=== PATIENT | female | born 1995 | race Caucasian/White ===

== ENCOUNTER 2019-10-10 10:52 | Outpatient (REF) | payer BC, SELFPAY ==
[2019-10-10 14:46] LABS: Anion Gap 8.8 mmol/L (3-11); BUN 10 mg/dL (7-18); CO2 26.2 mmol/L (21.0-32.0); CREATININE 0.95 mg/dL (0.55-1.02); Calcium 9.3 mg/dL (8.5-10.1); Calculated LDL 118 mg/dL (<100); Chloride 103 mmol/L (98-107); Cholesterol 175 mg/dL (<200); Glucose 98 mg/dL (74-106); HDL Cholesterol 45 mg/dL (40-60); Potassium 4.1 mmol/L (3.5-5.1); Sodium 138 mmol/L (136-145); Triglyceride 62 mg/dL (<150)
== END 2019-10-10 11:12 ==
LOC: NCHCN 10:52
PROVIDERS: PCP Nurse Practitioner Family; Visit Provider Physician Assistant
DX: Z00.00 Encounter for general adult medical examination without abnormal findings (principal); Z13.220 Encounter for screening for lipoid disorders; Z13.228 Encounter for screening for other metabolic disorders
CPT/HCPCS: 80048; 80061

== ENCOUNTER 2019-10-23 05:26 | Outpatient (CLI) | payer BC, SELFPAY ==
--- NOTE | 2019-10-23 15:45 | NS.NUTBLAN_ITS ---
Agueda is referred for medical nutrition therapy for weight management. PMH: Nicol Danlos Syndrome and Garcia Syndrome. These conditions makes make exercise difficult due to hypertension and hyperflexibility of knee joints however she is able to use various exercise equipment at the gym. Agueda reports that she has gained > 100 lbs in last 6 years. She contributes weight gain to control and uncontrolled hunger. She also reports liquid poop 4-5 times daily. Weight today: 271 lbs, 64 inches, BMI 45. She does not drink or smoke but reports that she uses food to self sooth. Meds include 25 mg adderall XR, Effexor 37.5 mg. She has depression/anxiety. Labs include lipids wnl (10/10/19). Family history includes sister with eating disorder and mother that counted calories daily. 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 Food record indicates sporatic meals, reliance on convenience foods and frequent late night meals. Intervention: Educated Agueda on how to follow a lower carb diet. 6717-4948 kcal, 80-100 g protein with reliance on complex carbs, non starchy vegetables and lean protein. Written Education Material Provided. . Encouraged Agueda to exercise 45 min- 6 days per week and burn approx. 500 kcal per exercise season. Showed Agueda how to use phone patito called [employer] to log and track nutrient intake, exercise expenditure. ALso recommended follow up with PCP re: watery stools, may need colonoscopy and various conditions need to be r/o by GI. Suggested Agueda try citrucel 2 scoops daily to help absorb some stool fluid by soluable fiber. Excessive weight gain most likely due to excessive caloric intake due to anxiety/depression. In order to reduce reliance on food for soothing, will need to find alternate coping strategy. Goal: 5 lbs loss per month. Goal weight <200 lbs Plan. 1. Next visit 11/13/19 at 1400, 2. Agueda will email food record to typewriter mechanic weekly, 3. Agueda will follow meal plan and exercise 6 times weekly, Agueda will follow up with PCP re: watery stools.
== END 2019-10-23 05:46 ==
PROVIDERS: PCP Nurse Practitioner Family; Visit Provider Physician Assistant
DX: R63.5 Abnormal weight gain (principal); Q79.69 Other Ehlers-Danlos syndromes; I10 Essential (primary) hypertension; F41.8 Other specified anxiety disorders; Z71.3 Dietary counseling and surveillance
CPT/HCPCS: 97802

== ENCOUNTER 2022-10-31 14:02 | Outpatient (REF) | payer BC, SELFPAY ==
--- NOTE | 2022-10-31 13:45 | PAPFT_PTH ---
PATIENT: Agueda Watters LOC: [facility] U#:[id number] AGE/SX: 27/F ROOM: RE10/31/[address]: Debbie Arizmendi NP : 1995 BED: DIS: 10/31/2022 SPEC #: [id number] RECD: 10/31/22 17:45 STATUS: ZULEMA REJuan J #: [id number] VILLA: 10/31/22 13:[address]: Debbie Arizmendi NP DEPT: [facility] Cytology RECD BY: Marva Marques ENTERED: 10/31/22 17:45 SP TYPE: PAPFT OTHR DR: Kirstin Helton Tissues: 1 - CX/ENDOCX FOR PAP SMEARS Procedures: PAP THIN PREP/UVM Screening Comments: [id number]
== END 2022-10-31 14:03 | disposition home or self-care (01) ==
LOC: LBN 14:02
PROVIDERS: PCP Registered Nurse; Visit Provider Nurse Practitioner Women's Health
DX: R87.610 Atypical squamous cells of undetermined significance on cytologic smear of cervix (ASC-US) (principal)
CPT/HCPCS: 88142

== ENCOUNTER 2024-01-09 03:49 | Outpatient (CLI) | payer BC, SELFPAY ==
--- OUTSIDE RECORDS SUMMARY | 2024-01-09 03:57 | XMS_ITS | Referral Summary ---
Author Organization Health system Address [address] [place] [address] Care Team Providers Care Typing Bookkeeper Name Role Phone Marina Villalobos AUDIO VISUAL ENGINEER Primary Care Provider [phone] Social History Tobacco Use Types Packs/Day Years Used Date Smoking Tobacco: Never Assessed Sex and Gender Information Value Date Recorded Sex Assigned at Not on file Gender Identity Not on file Sexual Orientation Not on file Plan of Treatment Not on file Care Teams Typing Bookkeeper Relationship Specialty Start Date End Date Marina Villalobos, AUDIO VISUAL ENGINEER [address] [place] [address] PCP - General 07/17/18
--- OUTSIDE RECORDS SUMMARY | 2024-01-09 03:57 | XMS_ITS | Clinical Summary ---
Author Organization [facility] Address [address] [place] [address] Care Team Providers Care International Banker Name Role Phone Marina Villalobos NP Primary Care Provider [phone] Social History Tobacco Use Types Packs/Day Years Used Date Smoking Tobacco: Never Assessed Sex and Gender Information Value Date Recorded Sex Assigned at Not on file Gender Identity Not on file Sexual Orientation Not on file Plan of Treatment Health Maintenance Due Date Last Done Comments Hepatitis C Screen 1995 Hepatitis B Vaccine (1 of 3 - 19+ 3-dose series) 09/14 COVID-19 Vaccine (2022- season) 2023 Care Teams International Banker Relationship Specialty Start Date End Date Marina Villalobos CAP LINING MACHINE OPERATOR [address] [place] [address] PCP - General 07/17/18
--- OUTSIDE RECORDS SUMMARY | 2024-01-09 03:57 | XMS_ITS | Encounter Summary ---
Author Organization [facility] Address [address] [place] [address] Care Team Providers Care Director Aeronaut[employer] Commission Name Role Phone Marina Villalobos NP Primary Care Provider Encounter Details Date Type Department Care Team (Late st Contact Info) Description 11/01/2022 Lab Requisition [facility] Pathology & Laboratory Medicine - [facility] [address] [place] [address] Debbie Arizmendi, CARDIOLOGY COORDINATOR [address] [address] Encounter for other general examination Social History Tobacco Use Types Packs/Day Years Used Date Smoking Tobacco: Never Assessed Sex and Gender Information Value Date Recorded Sex Assigned at Not on file Gender Identity Not on file Sexual Orientation Not on file documented as of this encounter Plan of Treatment Not on file documented as of this encounter Procedures Procedure Name Priority Date/Time Associated Diagnosis Comments PAP TEST Today 10/31/2022 13:45 EDT Encounter for other general examination documented in this encounter Results * PAP TEST (10/31/2022 13:45 EDT) Specimens A. Cervix and/or Endocervix , ThinPrep Imaging System with Manual Evaluation 11/16/2022 15:21 EDT [facility] Specimen Adequacy Satisfactory for Evaluation - transformation zone component present 11/16/2022 15:21 EDT [facility] General Categorization Negative for intraepithelial lesion or malignancy 11/16/2022 15:21 EDT [facility] Descriptive Diagnosis Shift in vasiliy present suggestive of bacterial vaginosis. 11/16/2022 15:21 EDT [facility] Attestation . 11/16/2022 15:21 EDT [facility] at 1521 Clinical History See below 11/17/19 15:21 EDT [facility] Performing Lab [facility] 11/16/2022 15:21 EDT [facility] Scanned Images 11/16/2022 15:21 EDT [facility] Papanicolaou smear specimen (specimen) CERVIX UTERI STRUCTURE / Unknown 10/31/2022 13:45 EDT 11/01/2022 11:45 EDT Debbie Arizmendi APRN PATHOLOGY ORDERAB LES [facility] [address] [place] [address] documented in this encounter Visit Diagnoses Diagnosis Encounter for other general examination documented in this encounter Care Teams Director Aeronautics Commission Relationship Specialty Start Date End Date Marina Villalobos NP [address] [place] [address] PCP - General 07/17/18 documented as of this encounter
--- OUTSIDE RECORDS SUMMARY | 2024-01-09 03:57 | XMS_ITS | Encounter Summary ---
Author Organization [facility] Address [address] [place] [address] Care Team Providers Care Network Field Engineer Name Role Phone Marina Villalobos GRAFFITI CLEANER Primary Care Provider [phone]- [phone] Reason for Visit * Reason Onset Date Comments Appointment Related 10/02/2018 FCP Encounter Details Date Type Department Care Team (Late st Contact Info) Description 10/02/2018 Telephone [facility] Hematology & Oncology - [facility] [address] [place], [place] [address] Fcp, Provider, Appointment Related (FCP) Social History Tobacco Use Types Packs/Day Years Used Date Smoking Tobacco: Never Assessed Sex and Gender Information Value Date Recorded Sex Assigned at Not on file Gender Identity Not on file Sexual Orientation Not on file documented as of this encounter Miscellaneous Notes * Telephone Encounter - Myra Hickman - 10/02/2018 1318 EDT Called pt and LMOM to f/up on referral. Left direct line for pt to call back. 3rd attempt. documented in this encounter Plan of Treatment Not on file documented as of this encounter Visit Diagnoses Not on filedocumented in this encounter Care Teams Network Field Engineer Relationship Specialty Start Date End Date Marina Villalobos NP [address] [place], [place] [address] PCP - General 07/17/18 documented as of this encounter
--- OUTSIDE RECORDS SUMMARY | 2024-01-09 03:57 | XMS_ITS | Encounter Summary ---
Author Organization [facility] Address [address] [place] [address] Care Team Providers Care Trailhead Maintenance Worker Name Role Phone Marina Villalobos NP Primary Care Provider [phone]- [phone] Reason for Visit * Reason Onset Date Comments Appointment Related 08/28/2018 FCP Encounter Details Date Type Department Care Team (Late st Contact Info) Description 08/28/2018 Telephone [facility] Hematology & Oncology - [facility] [address] [place], [place] [address] Fcp, Provider, Appointment Related (FCP) Social History Tobacco Use Types Packs/Day Years Used Date Smoking Tobacco: Never Assessed Sex and Gender Information Value Date Recorded Sex Assigned at Not on file Gender Identity Not on file Sexual Orientation Not on file documented as of this encounter Miscellaneous Notes * Telephone Encounter - Myra Hickman - 08/28/2018 1200 EDT Myra Hickman 07/23/2018 12:04 Called and LMOM on 07/11/18 for pt, but could not find MRN until recently. Left direct line for pt to call back. Myra Hickman 08/28/2018 11:59 Called pt and LMOM to f/up on referral. Left direct line for pt to call back. documented in this encounter Plan of Treatment Not on file documented as of this encounter Visit Diagnoses Not on filedocumented in this encounter Care Teams Trailhead Maintenance Worker Relationship Specialty Start Date End Date Marina Villalobos AUDIO VIDEO MECHANIC [address] [place] [address] PCP - General 07/17/18 documented as of this encounter
--- OUTSIDE RECORDS SUMMARY | 2024-01-09 03:57 | XMS_ITS | Encounter Summary ---
[place] [address] Care Team Providers Care Photographer Name Role Phone Huey Juarez Primary Care Provider Reason for Referral * Consultation (Routine) - Canceled Specialty Diagnoses / Procedures Referred By Contac t Referred To Contact Genetics Diagnoses Family history of genetic disease carrier Huey Juarez PA [address] [place] [address] [facility] [address] [place] [phone] Referral ID Status Reason Start Date Expiration Date Visits Requested Visits Authorized [id number] Canceled Consult, Test & Treat PCP Updated and/or Approved 09/21/2021 09/21/2022 6 6 Encounter Details Date Type Department Care Team (Latest Contact Info) Description 09/21/2021 Transcribe Orders eDH Incoming Referrals [phone] Huey Juarez PA [address] [place] [address] Family history of genetic disease carrier Social History Tobacco Use Types Packs/Day Years Used Date Smoking Tobacco: Never Assessed Sex and Gender Information Value Date Recorded Sex Assigned at Not on file Gender Identity Not on file Sexual Orientation Not on file documented as of this encounter Plan of Treatment Scheduled Referrals Name Type Priority Associated Diagnoses Orde r Schedule Referral to Genetics Outpatient Referral Routine Family history of genetic disease carrier Ordered: 09/21/2021 documented as of this encounter Visit Diagnoses Diagnosis Family history of genetic disease carrier documented in this encounter Care Teams Photographer Relationship Specialty Start Date End Date Huey Juarez PA [address] [place] [address] PCP - General Internal Medicine 09/21/21 documented as of this encounter
--- OUTSIDE RECORDS SUMMARY | 2024-01-09 03:57 | XMS_ITS | Clinical Summary ---
Author Organization [facility] Address [facility] [place] [address] Care Team Providers Care Facialist Name Role Phone Huey Juarez Primary Care Provider [phone] Allergies Active Allergy Reactions Criticality Noted Date Comments Cis Free Text Allergy hay. CIS - itchy eyes Medications Medication Sig Dispensed Refills Start Date End Date Status FLUoxetine (PROZAC) 20 mg tablet 20 MG = 1 Tablet(s), PO, Once daily 10/12/2009 Active buPROPion (WELLBUTRIN XL) 300 mg 24 hr tablet 300 MG = 1 Tablet(s), PO, Once daily 10/12/2009 Active Immunizations Name Administration Dates Next Due DTaP 01/17/2000 Diphtheria,pertussis,tetanus 03/28/1996, 06/25/1995,03/22/1995,1994 HIB Vaccine PRP-T (ActHIB, H iberix, OmniHib) 01/03/1996,06/25/1995,03/22/1995,1994 Hepatitis B Unspecified Formulation 10/23/1995,1 ,01/16/1995 Inactivated Polio Vaccine (IPOL) 01/17/2000 MMR Vaccine LIVE 01/17/2000,01/03/1996 Polio Vaccine (Orimune) 03/28/1996,06/25,03/22/1995,1994 Social History Tobacco Use Types Packs/Day Years Used Date Smoking Tobacco: Never Assessed Sex and Gender Information Value Date Recorded Sex Assigned at Not on file Gender Identity Not on file Sexual Orientation Not on file Plan of Treatment Health Maintenance Due Date Last Done Comments HIV screen 2012 Hepatitis C Screening 2012 Tdap adult 2013 Tetanus vaccine 2013 01/17/2000, 03/14, 06/25/1995, Additional history exists PAP Smear 09/15/2015 Covid-19 Vaccine ( - 2022-2 4 season) 2023 Influenza (Flu) vaccine (1 o f 1 - Influenza standard series) 01/13/2024 Hepatitis B vaccine (0-59 yrs) Completed 0 10/23/1995, 02/19/1995, 01/16/1995 Care Teams Facialist Relationship Specialty Start Date End Date Huey Juarez PA [address] [place] [address] PCP - General Internal Medicine 09/21/21
[2024-01-09 17:22] LABS: ALT 24 U/L (14-59); AST 12 U/L (15-37); Albumin 3.5 g/dL (3.4-5.0); Alkaline Phosphatase 140 U/L (46-116); BUN 10 mg/dL (7-18); Bilirubin, Total 0.34 mg/dL (0.2-1.0); CREATININE 0.9 mg/dL (0.55-1.02); Calcium 9.1 mg/dL (8.5-10.1); Calculated LDL 112 mg/dL (<100); Chloride 103 mmol/L (98-107); Cholesterol 167 mg/dL (<200); Estimated GFR 88.75 (mL/min/1.73m2); Glucose 93 mg/dL (74-106); HDL Cholesterol 42 mg/dL (40-60); Sodium 137 mmol/L (136-145); Total Protein 7.9 g/dL (6.4-8.2); Triglyceride 67 mg/dL (<150)
== END 2024-01-09 03:50 | disposition home or self-care (01) ==
LOC: LBO 03:50
PROVIDERS: PCP Registered Nurse; Visit Provider Physician Assistant
DX: R73.03 Prediabetes (principal)
CPT/HCPCS: 36415; 80053; 80061